=== PATIENT | male | born 1970 | race Caucasian/White ===

== ENCOUNTER 2018-12-29 07:15 | Emergency (ER) | payer BC ==
[~2018-12-29] VITALS: Ht 170.2 cm; Wt 75.0 kg
[2018-12-29] MEDS ORDERED: KETOROLAC 30 MG/ML VIAL (J1885) IV ONE (08:15)
[2018-12-29] MEDS ORDERED: ONDANSETRON 4MG/2ML VIAL (J2405) IV ONE (08:15)
--- NOTE | 2018-12-29 08:17 | REP ---
Clinical: Trauma. Technique: AP, lateral, bilateral oblique views of the right ankle. Findings: Fracture of the distal fibular metaphysis and posterior malleolus with overlying soft tissue swelling noted. Subtle widening to the ankle mortise is suggested. No subcutaneous emphysema or foreign body. Impression: Comminuted fractures as described above with overlying soft tissue swelling. Electronically Signed by Kennedy Amaya MD 12/29/2018 08:08 A
[2018-12-29] MEDS ORDERED: PERC5TAB12 PO ×2 (10:50→10:52)
[2018-12-29] MEDS ORDERED: PERCOCET 5MG/325MG TAB PO ONE (11:00)
[2018-12-29 11:37] VITALS: BP 124/75
== END 2018-12-29 11:38 | disposition home or self-care (01) ==
LOC: M ED 07:15
DX: S82.831A Other fracture of upper and lower end of right fibula, initial encounter for closed fracture (principal); S82.64XA Nondisplaced fracture of lateral malleolus of right fibula, initial encounter for closed fracture; X58.XXXA Exposure to other specified factors, initial encounter; Y92.89 Other specified places as the place of occurrence of the external cause; Y93.01 Activity, walking, marching and hiking; Y99.9 Unspecified external cause status; L40.9 Psoriasis, unspecified
CPT/HCPCS: 29515; 73610; 96374; 96375; 99284; J1885; J2405